=== PATIENT | female | born 1950 | race African-American/Black ===

== ENCOUNTER 2017-03-17 08:18 | Day surgery (SDC) | payer MEDICARE ==
[~2017-03-17] VITALS: Ht 167.6 cm; Wt 63.6 kg
[2017-03-17 11:51] LABS: BASOPHILS 0.4 % (0-2); EOSINOPHILS 3.5 % (0-7); HEMATOCRIT 40.9 % (36.0-48.0); HEMOGLOBIN 13.1 g/dL (12-16); IMMATURE GRANULOCYTES 0.3 % (0-5); LYMPHOCYTES 27.1 % (15-50); MCH 31.3 pg (26.0-34.0); MCV 97.8 fL (80.0-100.0); MONOCYTES 6.4 % (2-11); NEUTROPHILS 62.3 % (40-80); PLATELET COUNT 282 10x3/uL (130-400); RBC 4.18 10x6/uL (4.00-5.40); RDW 13.9 % (11.5-14.5); WBC 9.5 10x3/uL (4.8-10.8)
[2017-03-17 11:54] LABS: CALC OSMOLALITY 289 mosm/kg (275-300); CARBON DIOXIDE 29.2 mmol/L (21.0-32.0); CHLORIDE - SERUM 108 mmol/L (98-107); CREATININE - SERUM 0.7 mg/dL (0.6-1.3); GLUCOSE 96 mg/dL (74-106); POTASSIUM - SERUM 3.8 mmol/L (3.5-5.1); SODIUM 146 mmol/L (136-145); UREA NITROGEN 9 mg/dL (7-18); eGFR NON AFRICAN AMERICAN 89 mL/min (90-120)
[2017-03-17] MEDS ORDERED: KLONOPIN1 MG PO (13:06)
[2017-03-17] MEDS ORDERED: REMERON15 MG PO (13:11)
[2017-03-17] MEDS ORDERED: HYZAAR 100-12.51 TAB PO (13:13)
[2017-03-17] MEDS ORDERED: NORVASC10 MG PO (13:13)
[2017-03-17] MEDS ORDERED: CATAPRES0.2 MG PO (13:14)
[2017-03-17 13:44] VITALS: BP 163/105; Ht 167.6 cm; Wt 63.6 kg
--- NOTE | 2017-03-17 14:39 | NUR ---
1420-INTRA PROCEDURE DR. RABAGO HERE TO EXAMINE, CONSULT.
--- NOTE | 2017-03-17 14:40 | NUR ---
1429-RECTAL BIOPSIES TAKEN, DR. RABAGO FOR INTRA PROCEDURE CONSULTATION. POOR PREP, UNABLE TO COMPLETE BEYOND RECTAL AREA.
[2017-03-17] MEDS ORDERED: NORCO 7.5/325 T1 TA1 PO (15:13)
--- NOTE | 2017-03-19 15:58 | OP ---
PATIENT NAME: FUENTES GALLEGO MEDICAL RECORD: [id number] :54 LOCATION:[facility] ADMISSION DATE: SURGEON: MARIXA ABDALLA DO DATE OF OPERATION: 03/17/2017 PROCEDURE: Flexible sigmoidoscopy with rectal biopsy. INDICATIONS FOR PROCEDURE: Generalized abdominal pain, Crohn disease, and rectal pain. SCOPE: backstitch video pediatric colonoscope. MEDICATIONS: Propofol 100 mg IV per anesthesia. ESTIMATED BLOOD LOSS: Minimal. COMPLICATIONS: None. FINDINGS: This was a very limited examination for multiple reasons. On initial inspection, the patient was noted to have multiple open wounds on her buttocks with exposed flesh involving the rectum as well. This appeared to be draining pockets, but there was no specific expressed pustular material or other exudates. The rectum was difficult to identify due to the anatomical distortion related to these wounds. Once it was identified, a digital rectal examination was performed and was normal. The endoscope was advanced under direct visualization through the anus into the rectum. The prep was inadequate for this procedure. Because of the external findings, the rectum was cleaned and three random biopsies were taken. The procedure was terminated at this point due to the inability to stay clean and completely pass the colon due to the prep as well as the wounds located on the buttocks. The scope was withdrawn from the patient. The patient tolerated the procedure well and there were no complications. I did ask surgery to lay eyes on the patient to further thoughts and opinions on the next step. A quick evaluation was given and we have decided to arrange an outpatient appointment in the surgery clinic. IMPRESSION: 1. Multiple open wounds on the buttocks as described above. 2. Inadequate prep. PLAN AND RECOMMENDATIONS: 1. Discharge home when recovery parameters are met. 2. Follow up with surgery in an urgent consultation for determining next step at management. 3. Crohn disease has not been confirmed in this case. I am unable to start medications needed for Crohn disease without confirming this. Once surgery plans their intervention, further endoscopy will be undertaken to determine whether or not Crohn's is present and this will be treated as indicated. 4. I will provide the patient with a script for [place] for pain. She will be given 7.5 mg/325 mg, #90, to be taken once every 8 hours as needed for severe pain. 5. No antibiotics will be given at this time and the patient has gone greater than 6 months with this condition without any antibiotics. 6. We will follow up after surgery has evaluated the patient. TRANSINT:[id number] Voice Confirmation ID: [id number] DOCUMENT ID: [id number] OPERATIVE REPORT [id number] FUENTES GALLEGO NATHAN A DO at 1558 CC: [id number] DICTATION DATE: 03/17/17 1442 DIRECTOR OF RETAIL MERCHANDISING: 03/18/17 0023 [facility] 03/17/[address] [id number]
== END 2017-03-17 16:00 | disposition home or self-care (01) ==
LOC: D.OPS 08:18
PROVIDERS: Anesthesiology
DX: K62.89 Other specified diseases of anus and rectum (principal); F17.200 Nicotine dependence, unspecified, uncomplicated; I10 Essential (primary) hypertension; K21.9 Gastro-esophageal reflux disease without esophagitis; Z86.73 Personal history of transient ischemic attack (TIA), and cerebral infarction without residual deficits; Z01.812 Encounter for preprocedural laboratory examination; S31.809A Unspecified open wound of unspecified buttock, initial encounter